=== PATIENT | male | born 1990 | race Caucasian/White ===

== ENCOUNTER 2023-12-27 08:00 | Emergency (ER) | payer BC, SELFPAY ==
--- NOTE | 2023-12-27 08:15 | DI.RAD_ITS ---
Exam(s) XR FOOT LT COMPLETE EXAM: XR FOOT LT COMPLETE CLINICAL HISTORY: Pain, Fall. TECHNIQUE: 2D digital imaging was performed. COMPARISON: No exams were available for comparison FINDINGS: 3 views There is fracture of the base of the 3rd metatarsal. Due to overlapping of bones, cannot exclude fr acture of the adjacent base of 4th metatarsal. No other fractures identified. No diastasis of the main Lisfranc joint. There is overlying soft tis silva swelling. IMPRESSION: Minimally displaced fracture of the base of the 3rd metatarsal. DATA REPOSITORY: RADIATION DOSE DELIVERED:
--- NOTE | 2023-12-27 08:15 | DI.RAD_ITS ---
Exam(s) XR ANKLE LT 2V EXAM: XR ANKLE LT 2V CLINICAL HISTORY: Fall. TECHNIQUE: 2D digital imaging was performed. COMPARISON: No exams were available for comparison FINDINGS: Two views-AP and lateral: As per request, a limited two view study of the left ankle was performed. There is no evidence of fracture widening ankle mortise. Talar dome appears unremarkable. Mild soft tissue swelling medially. Bone density normal. No osseous lesions. No evidence of osseous tarsal coalition. IMPRESSION: No significant osseous findings on this limited two view study of the left ankle DATA REPOSITORY: RADIATION DOSE DELIVERED:
[2023-12-27 08:16] VITALS: BP 173/99; PULSE 96; RESP 18; TEMP 36.5; O2SAT 98
--- NOTE | 2023-12-27 08:32 | W.ED.GENAD ---
Discharge Plan Disposition Patient Disposition: Home Condition: Stable Discharge Details Clinical Impression: Fracture of third metatarsal bone of left foot Primary Care Provider: None,None ED Provider: Linnette Ray Home Meds and New Rx's Prescriptions: No Action No Known Home Meds Discharge Instructions Instructions: Foot Fracture in Adults (ED) Additional Instructions: You do have a broken bone in your left foot. Wear the walking boot and use crutches. You may take off the boot for bathing. Please stay off foot as much as possible. use crutches as directed. Follow up with Orthopedics in 1 week. Rest, ice, compression, elevation. Please take Tylenol or Ibuprofen with food every 4-6 hours as needed for pain and swelling. Stand Alone Forms: Work Release Referrals: Real Arndt MD [ [facility] STAFF PHYSICIAN] - 1 week HPI General Mode of arrival: wheelchair. Date/Time Provider Initiated Documentation: 12/27/23 08:26. Limitations to Documentation: no limitations. Information obtained by: patient, RN notes reviewed and old records reviewed. HPI Narrative: 33 year old male presents to the ER with cc of left foot and ankle pain. Patient has a history of sleepwalking and reports that he fell asleep on the couch last night and awoke at approximately 1:30 in the morning in the kitchen after falling down. Denies any other injuries however he reports that his foot is in pain. He also has some left ankle pain. No obvious deformity is tender with palpation to his mid dorsum of his foot. He did take ibuprofen around 2 AM. He denies taking any medications. Denies any headache neck pain back pain or any other associated symptoms. Related Data Home Medications Medication Instructions Recorded Confirmed Unknown [No Known Home Meds] 05/25/17 12/27/23 Allergies Allergy/AdvReac Type Severity Reaction Status Date / Time Penicillins Allergy rash Unverified 12/27/23 08:29 General Stated Complaint: Orthopedic MYRA: 4 Review of Systems All systems reviewed & are unremarkable except as noted in HPI and below Exam Narrative Exam Narrative: General: Well Developed, Awake and Alert, conversant. Skin: Warm and Dry Nose/Face: Atraumatic. Mouth/Throat: No intraoral trauma. Teeth and mandible are intact. Neck: No midline tenderness, no step off, no deformity to palpation of C-spine. Trachea midline. Extremities: no surface trauma. Sensation intact. Peripheral pulses intact and equal. Tenderness to the dorsum of his left midfoot. Reports unable to ambulate. Neuro: ANO x4, GCS 15, cranial nerves II through XII intact. Motor and sensory exam nonfocal. Reflexes are symmetric. Course Vital Signs Vital signs: Vital Signs Temperature 36.5 C 12/27/23 08:16 Pulse 96 H 12/27/23 08:16 Respiratory Rate 18 12/27/23 08:16 Blood Pressure 173/99 H 12/27/23 08:16 Pulse Oximetry 98 12/27/23 08:16 Temperature 36.5 C 12/27/23 08:16 Temperature Source Temporal Artery Scan 12/27/23 08:16 Pulse 96 H 12/27/23 08:16 Respiratory Rate 18 12/27/23 08:16 Blood Pressure 173/99 H 12/27/23 08:16 Blood Pressure Position Sitting 12/27/23 08:16 Pulse Oximetry 98 12/27/23 08:16 Oxygen Delivery Method Room Air 12/27/23 08:16 Oxygen Flow Rate 0 12/27/23 08:16 Pain Level 10 12/27/23 08:16 Medical Decision Making 33 year old male presents to the ER with cc of left foot and ankle pain. Patient has a history of sleepwalking and reports that he fell asleep on the couch last night and awoke at approximately 1:30 in the morning in the kitchen after falling down. Denies any other injuries however he reports that his foot is in pain. He also has some left ankle pain. No obvious deformity is tender with palpation to his mid dorsum of his foot. He did take ibuprofen around 2 AM. He denies taking any medications. Denies any headache neck pain back pain or any other associated symptoms. X-ray left foot and ankle ordered. X-ray shows a minimally displaced fracture of the base of the third metatarsal. Patient placed in a walking boot and given crutches and discussed on limited weightbearing. Will place on orthopedic follow-up list. This text was generated using [employer] system, please disregard any oddities of phrase or misspellings. Imaging Data Radiologic Study: Imaging: X-Ray Radiologist's impression: EXAM: XR ANKLE LT 2V CLINICAL HISTORY: Fall. TECHNIQUE: 2D digital imaging was performed. COMPARISON: No exams were available for comparison FINDINGS: Two views-AP and lateral: As per request, a limited two view study of the left ankle was performed. There is no evidence of fracture widening ankle mortise. Talar dome appears unremarkable. Mild soft tissue swelling medially. Bone density normal. No osseous lesions. No evidence of osseous tarsal coalition. IMPRESSION: No significant osseous findings on this limited two view study of the left ankle Radiologic Study #2: Imaging: X-Ray Radiologist's impression: XR FOOT LT COMPLETE EXAM: XR FOOT LT COMPLETE CLINICAL HISTORY: Pain, Fall. TECHNIQUE: 2D digital imaging was performed. COMPARISON: No exams were available for comparison FINDINGS: 3 views There is fracture of the base of the 3rd metatarsal. Due to overlapping of bones, cannot exclude fracture of the adjacent base of 4th metatarsal. No other fractures identified. No diastasis of the main Lisfranc joint. There is overlying soft tissue swelling. IMPRESSION: Minimally displaced fracture of the base of the 3rd metatarsal. Quality:SDOH Health Related Social Needs: No Data to Display PFSH All Active Problems (Updated 12/27/23 @ 09:28 by Linnette Ray NP) Fracture of third metatarsal bone of left foot (Acute) Social History Smoking/Tobacco Use Status: Former Tobacco Use Quit Date: 11/28/20 Smoking risk assessment performed?: Yes Alcohol Intake: current Alcohol Intake frequency: holidays/special occasions only Alcohol type: beer Drug use: Never Substance use type: does not use Housing: apartment Do you feel safe at home: Yes Do you feel safe in your relationship?: Yes
== END 2023-12-27 09:48 | disposition home or self-care (01) ==
PROVIDERS: Emergency Provider Registered Nurse Emergency
DX: S92.332A Displaced fracture of third metatarsal bone, left foot, initial encounter for closed fracture (principal); M79.672 Pain in left foot; M25.572 Pain in left ankle and joints of left foot; F51.3 Sleepwalking [somnambulism]; W19.XXXA Unspecified fall, initial encounter
CPT/HCPCS: 28470; 29515; 99284; 73600; 73630; 99283

== ENCOUNTER → 2024-01-10 13:32 | Outpatient (CLI) | payer BC, SELFPAY ==
--- NOTE | 2024-01-10 12:17 | DI.RAD_ITS ---
Exam(s) XR FOOT LT COMPLETE EXAM: XR FOOT LT COMPLETE CLINICAL HISTORY: fracture 3rd metatarsal, S92.332A. TECHNIQUE: 2D digital imaging was performed of the left foot. Three images were obtained. AP, obli que and lateral views were obtained. COMPARISON: CR XR FOOT LT COMPLETE from 12/27/2023 CR XR ANKLE LT 2V from 12/27/2023 FINDINGS: BONES: There does not appear to be any significant change in alignment of the comminuted fracture inv olving the base of the 3rd metatarsal bone. No bony destructive lesion is seen. JOINTS: No dislocation present. SOFT TISSUE: Normal. IMPRESSION: Stable alignment of the fracture involving the base of the 3rd metatarsal bone. DATA REPOSITORY: RADIATION DOSE DELIVERED:
== END ==
PROVIDERS: Visit Provider Podiatrist
DX: S92.332A Displaced fracture of third metatarsal bone, left foot, initial encounter for closed fracture (principal); X58.XXXA Exposure to other specified factors, initial encounter
CPT/HCPCS: 73630

== ENCOUNTER → 2024-01-21 01:01 | Outpatient (CLI) | payer BC, SELFPAY ==
--- NOTE | 2024-01-21 07:00 | DI.RAD_ITS ---
Exam(s) XR FOOT LT COMPLETE EXAM: XR FOOT LT COMPLETE CLINICAL HISTORY: fx 3rd metatarsal bone lt foot,s92.332a. TECHNIQUE: 2D digital imaging was performed. Three views. COMPARISON: CR XR FOOT LT COMPLETE from 01/10/2024 FINDINGS: BONES: There has been no change in the alignment at the fractures of the bases of the 3rd and 4th met atarsals. No new fractures. No bony destructive lesion is seen. JOINTS: No dislocation present. SOFT TISSUE: Mild dorsal soft tissue swelling. IMPRESSION: Stable alignment of the fractures of the bases the 3rd and 4th metatarsals. DATA REPOSITORY: RADIATION DOSE DELIVERED:
== END ==
PROVIDERS: PCP Nurse Practitioner Family; Visit Provider Podiatrist
DX: S92.332D Displaced fracture of third metatarsal bone, left foot, subsequent encounter for fracture with routine healing (principal); X58.XXXD Exposure to other specified factors, subsequent encounter
CPT/HCPCS: 73630

== ENCOUNTER 2024-02-03 09:05 | Outpatient (CLI) | payer BC, SELFPAY ==
[2024-02-03 10:54] LABS: HCT 46.2 % (40.0-50.0); MCH 29.7 pg (27.0-33.0); MCHC 32.5 % (32.0-36.0); MCV 92 fL (80-95); MPV 9.3 fL (8.0-11.0); Platelet Count 295 10^3/uL (130-400); RBC 5.05 10^6/uL (4.36-5.78); RDW 13.1 % (11.8-14.1); RDW-SD 43.8 fL; WBC 9.23 10^3/uL (4.4-10.8)
[2024-02-03 11:26] LABS: ALT 60 U/L (16-63); AST 35 U/L (15-37); Albumin 3.6 g/dL (3.4-5.0); Alkaline Phosphatase 60 U/L (46-116); Anion Gap 9.8 mmol/L (3-11); BUN 10 mg/dL (7-18); Bilirubin, Total 0.6 mg/dL (0.2-1.0); CO2 27.2 mmol/L (21.0-32.0); CREATININE 0.9 mg/dL (0.70-1.30); Calcium 9.6 mg/dL (8.5-10.1); Calculated LDL 115 mg/dL (<100); Chloride 103 mmol/L (98-107); Cholesterol 204 mg/dL (<200); Estimated GFR 114.93 (mL/min/1.73m2); Glucose 110 mg/dL (74-106); HDL Cholesterol 36 mg/dL (40-60); Potassium 4.5 mmol/L (3.5-5.1); Sodium 140 mmol/L (136-145); TSH (W/Ref FT4) 2.08 uIU/mL (0.36-3.74); Triglyceride 265 mg/dL (<150)
[2024-02-04 08:54] LABS: Hepatitis C Ab w Rflx HCV PCR Negative (Negative)
[2024-02-04 12:02] LABS: HIV-1/2 Ag & Ab Screen Negative (Negative)
== END 2024-02-03 09:06 | disposition home or self-care (01) ==
LOC: LOS 09:05
PROVIDERS: PCP Nurse Practitioner Family; Referring Provider Nurse Practitioner Family; Visit Provider Nurse Practitioner Family
DX: Z11.4 Encounter for screening for human immunodeficiency virus [HIV] (principal); F51.3 Sleepwalking [somnambulism]; Z13.220 Encounter for screening for lipoid disorders; R73.9 Hyperglycemia, unspecified; Z11.59 Encounter for screening for other viral diseases
CPT/HCPCS: 36415; 80053; 80061; 85027; 86803; 87389; 83036; 84443

== ENCOUNTER → 2024-02-11 00:27 | Outpatient (CLI) | payer BC, SELFPAY ==
--- NOTE | 2024-02-11 08:23 | DI.RAD_ITS ---
Exam(s) XR FOOT LT COMPLETE EXAM: XR FOOT LT COMPLETE CLINICAL HISTORY: monitor progress fx 3rd metatarsal,lt foot pain,edema,M79.672. TECHNIQUE: 2D digital imaging was performed. COMPARISON: CR XR FOOT LT COMPLETE from 01/10/2024 CR XR FOOT LT COMPLETE from 01/21/2024 FINDINGS: 3 views Again noted is a previously described fracture site at the base of the 3rd and possibly also 4th meta tarsals. Appearance is unchanged. No further displacement. No true diastasis of the Lisfranc joint . Fracture still evident at the base of the 3rd and 4th metatarsals. IMPRESSION: DATA REPOSITORY: RADIATION DOSE DELIVERED:
== END ==
PROVIDERS: PCP Nurse Practitioner Family; Visit Provider Podiatrist
DX: S92.332D Displaced fracture of third metatarsal bone, left foot, subsequent encounter for fracture with routine healing (principal); X58.XXXD Exposure to other specified factors, subsequent encounter
CPT/HCPCS: 73630

== ENCOUNTER 2024-02-16 16:32 | Outpatient (REF) | payer BC, SELFPAY ==
[2024-02-03 14:31] LABS: COMMENT (LAB VIEW ONLY) 145.09 mg/dL
[2024-02-03 14:33] LABS: Microalb ug/mg Crea 587.6 ug/mg Cr
== END 2024-02-16 16:33 | disposition home or self-care (01) ==
LOC: LBN 16:32
PROVIDERS: PCP Nurse Practitioner Family; Visit Provider Nurse Practitioner Family
DX: I10 Essential (primary) hypertension (principal)
CPT/HCPCS: 82043; 82570

== ENCOUNTER → 2024-03-01 01:27 | Outpatient (CLI) | payer BC, SELFPAY ==
--- NOTE | 2024-03-01 10:23 | DI.RAD_ITS ---
Exam(s) XR FOOT LT COMPLETE EXAM: XR FOOT LT COMPLETE CLINICAL HISTORY: Consolidation?, displaced fracture 3rd MT bone tl foot, pain, S92.332A,. TECHNIQUE: 2D digital imaging was performed. COMPARISON: CR XR FOOT LT COMPLETE from 02/11/2024 FINDINGS: 3 views Again noted are the previously described fracture sites at the bases of the 3rd and 4th metatarsals. Fracture lines are still evident. No displacement. There is no diastasis of the main Lisfranc join t. No new fractures identified. IMPRESSION: Stable unchanged appearance at the fracture sites at the bases of the 3rd and 4th metatarsals. DATA REPOSITORY: RADIATION DOSE DELIVERED:
== END ==
PROVIDERS: PCP Nurse Practitioner Family; Visit Provider Podiatrist
DX: S92.332A Displaced fracture of third metatarsal bone, left foot, initial encounter for closed fracture (principal); M79.672 Pain in left foot; R60.9 Edema, unspecified
CPT/HCPCS: 73630

== ENCOUNTER → 2024-04-03 01:54 | Outpatient (CLI) | payer BC, SELFPAY ==
--- NOTE | 2024-04-03 08:31 | DI.RAD_ITS ---
Exam(s) XR FOOT LT COMPLETE EXAM: XR FOOT LT COMPLETE CLINICAL HISTORY: ? Consolidation,displaced fx,s92.332a. TECHNIQUE: 2D digital imaging was performed. COMPARISON: CR XR FOOT LT COMPLETE from 03/01/2024 FINDINGS: 3 views Fracture sites at the bases of the 3rd and 4th metatarsals appear unchanged. However, on the present study there appears to be slight offset of the Lisfranc joint, specifically between the medial corti milton of the 2nd metatarsal and medial cortex of the middle cuneiform. This may imply significant inju ry of the main Lisfranc ligament. Also cannot exclude subtle for fracture at base of 2nd metatarsal. There is some soft tissue swelling of the dorsal aspect of the foot again noted. No pes planus. IMPRESSION: Findings as above. Recommend follow-up CT/MRI DATA REPOSITORY: RADIATION DOSE DELIVERED:
== END ==
PROVIDERS: PCP Nurse Practitioner Family; Visit Provider Podiatrist
DX: S92.332A Displaced fracture of third metatarsal bone, left foot, initial encounter for closed fracture (principal)
CPT/HCPCS: 73630

== ENCOUNTER 2024-05-09 00:53 | Outpatient (CLI) | payer BC, SELFPAY ==
--- NOTE | 2024-05-09 09:18 | DI.RAD_ITS ---
Exam(s) XR FOOT LT COMPLETE EXAM: XR FOOT LT COMPLETE CLINICAL HISTORY: ? consolidation?, displaced fracture 3rd MT bone tl,S92.332K. TECHNIQUE: 2D digital imaging was performed. Three views. COMPARISON: CR XR FOOT LT COMPLETE from 04/03/2024 FINDINGS: BONES: There appears to be bony bridging across the fracture line set the previously noted 3rd and 4t h metatarsal bases. No acute fracture is present. No bony destructive lesion is seen. JOINTS: Abnormal widening again noted between the bases of the 1st and 2nd metatarsals. SOFT TISSUE: Normal. IMPRESSION: Continued healing of 3rd and 4th metatarsal fractures. DATA REPOSITORY: RADIATION DOSE DELIVERED:
== END 2024-05-09 01:13 ==
LOC: DI 00:57
PROVIDERS: PCP Nurse Practitioner Family; Visit Provider Podiatrist
DX: S92.332K Displaced fracture of third metatarsal bone, left foot, subsequent encounter for fracture with nonunion (principal); X58.XXXA Exposure to other specified factors, initial encounter
CPT/HCPCS: 73630

== ENCOUNTER 2024-05-09 12:56 | Outpatient (CLI) | payer BC, SELFPAY | END 2024-05-09 12:57 | disposition home or self-care (01) | LOC: LBO 12:56 | PROVIDERS: PCP Nurse Practitioner Family; Visit Provider Podiatrist | DX: R79.89 Other specified abnormal findings of blood chemistry (principal) | CPT/HCPCS: 36415; 82306 ==

== ENCOUNTER 2024-06-14 02:04 | Outpatient (CLI) | payer BC, SELFPAY ==
--- NOTE | 2024-06-14 08:44 | DI.RAD_ITS ---
Exam(s) XR FOOT LT COMPLETE EXAM: XR FOOT LT COMPLETE CLINICAL HISTORY: ? progress of healing, f/u fx,s92.332k,s92.332a. TECHNIQUE: 2D digital imaging was performed of the left foot. Three images were obtained. AP, obli que and lateral views were obtained. COMPARISON: CR XR FOOT LT COMPLETE from 05/09/2024 FINDINGS: BONES: There has been no change in alignment of the fractures involving the bases of the 3rd and 4th metatarsals. Portions of the fracture lines are still visualized. No new fractures are seen. No robin [place] destructive lesion is seen. JOINTS: No dislocation present. SOFT TISSUE: Normal. IMPRESSION: Stable alignment of the fractures involving the 3rd and 4th metatarsal bones radiographically. Porti ons of the fracture lines are still visualized. If further characterization is warranted a CT scan s hould be considered. DATA REPOSITORY: RADIATION DOSE DELIVERED:
== END 2024-06-14 02:24 ==
LOC: DI 02:05
PROVIDERS: PCP Nurse Practitioner Family; Visit Provider Podiatrist
DX: S92.332D Displaced fracture of third metatarsal bone, left foot, subsequent encounter for fracture with routine healing; X58.XXXD Exposure to other specified factors, subsequent encounter
CPT/HCPCS: 73630

== ENCOUNTER 2024-07-17 00:55 | Outpatient (CLI) | payer BC, SELFPAY ==
--- NOTE | 2024-07-17 07:45 | DI.RAD_ITS ---
Exam(s) XR FOOT LT COMPLETE EXAM: XR FOOT LT COMPLETE CLINICAL HISTORY: ? Consolidation,F/U DISPLACED FX,S92.332k. TECHNIQUE: 2D digital imaging was performed. Three views. COMPARISON: CR XR FOOT LT COMPLETE from 06/14/2024 FINDINGS: BONES: Stable alignment of fractures at the bases of the 3rd and 4th metatarsals. There has been ivonne e increased healing at the fracture sites. The fracture lines remain faintly visible. No bony destr uctive lesion is seen. JOINTS: No dislocation present. SOFT TISSUE: Mild soft tissue swelling. IMPRESSION: Continued healing of the fractures at the bases of the 3rd and 4th metatarsals. No new abnormalities . DATA REPOSITORY: RADIATION DOSE DELIVERED:
== END 2024-07-17 01:15 ==
LOC: DI 00:55
PROVIDERS: PCP Nurse Practitioner Family; Visit Provider Podiatrist
DX: S92.332D Displaced fracture of third metatarsal bone, left foot, subsequent encounter for fracture with routine healing (principal); X58.XXXD Exposure to other specified factors, subsequent encounter
CPT/HCPCS: 73630

== ENCOUNTER 2024-08-14 01:09 | Outpatient (CLI) | payer BC, SELFPAY ==
--- NOTE | 2024-08-14 08:30 | DI.RAD_ITS ---
Exam(s) XR FOOT LT COMPLETE EXAM: XR FOOT LT COMPLETE CLINICAL HISTORY: f/u fx,s92.332K. TECHNIQUE: 2D digital imaging was performed. COMPARISON: CR XR FOOT LT COMPLETE from 07/17/2024 FINDINGS: 3 views There is further healing at the fracture sites at the bases of the 3rd and 4th metatarsals. On the o blique view the fracture lines appear less visible than previous. No new fractures identified. No r adiopaque foreign bodies. IMPRESSION: Further healing evident at the fracture sites at the bases of the 3rd and 4th metatarsals. DATA REPOSITORY: RADIATION DOSE DELIVERED:
== END 2024-08-14 01:29 ==
LOC: DI 01:09
PROVIDERS: PCP Nurse Practitioner Family; Visit Provider Podiatrist
DX: S92.332D Displaced fracture of third metatarsal bone, left foot, subsequent encounter for fracture with routine healing (principal); X58.XXXD Exposure to other specified factors, subsequent encounter
CPT/HCPCS: 73630

== ENCOUNTER 2024-10-11 01:42 | Outpatient (CLI) | payer BC, SELFPAY ==
--- NOTE | 2024-10-11 07:19 | DI.RAD_ITS ---
Exam(s) XR FOOT LT COMPLETE EXAM: XR FOOT LT COMPLETE CLINICAL HISTORY: ? HEALED,DISPLACED FX 3TH METATARSAL BONE LT FOOT WITH NONUNION,S92.332k. TECHNIQUE: 2D digital imaging was performed. Three views. COMPARISON: CR XR FOOT LT COMPLETE from 08/14/2024 FINDINGS: BONES: Cutaneous healing at the fractures of the bases of the 3rd and 4th metatarsals. The no acute fracture is present. No bony destructive lesion is seen. JOINTS: No dislocation present. SOFT TISSUE: Normal. IMPRESSION: Continued fracture healing. DATA REPOSITORY: RADIATION DOSE DELIVERED:
== END 2024-10-11 02:02 ==
LOC: DI 02:04
PROVIDERS: PCP Nurse Practitioner Family; Visit Provider Podiatrist
DX: S92.332D Displaced fracture of third metatarsal bone, left foot, subsequent encounter for fracture with routine healing (principal); X58.XXXD Exposure to other specified factors, subsequent encounter
CPT/HCPCS: 73630